=== PATIENT | female | born 1960 | race Caucasian/White ===

== ENCOUNTER 2016-06-28 17:43 | Emergency (ER) ==
[2016-06-28] MEDS ORDERED: DUONEB (A & A) INH ONE (18:52)
[2016-06-28 19:13] LABS: MANUAL DIFF NEEDED? NO
[2016-06-28 19:20] LABS: BASO% 0.3 % (0.0-0.8); EOS# 0.01 X1000 (0.0-0.7); EOS% 0.2 % (0.0-10.0); HEMATOCRIT 46.7 % (37.0-47.0); IMM GRAN# 0.02 X1000 (0.0-0.04); IMM GRAN% 0.3 % (0.0-0.5); LYMPH# 0.86 X1000 (1.2-3.4); LYMPH% 14.8 % (20.5-51.1); MCH 30.9 PG (27-31); MCHC 34.3 g/dL (33-37); MCV 90.3 FL (81-99); MONO# 0.09 X1000 (0.11-0.59); MONO% 1.5 % (1.7-9.3); MPV 10.3 FL (7.4-10.4); NEUT% 82.9 % (42.2-75.2); PLT 247 X1000 (130-400); RBC 5.17 XMIL (4.2-5.4)
[2016-06-28 19:26] LABS: INR 0.98; PROTIME 10.4 Seconds (9.2-11.7); PTT 26.4 Seconds (22.0-36.0)
--- NOTE | 2016-06-28 19:26 | ED EKG INTERP ---
EKG Interpretation - EKG Time of EKG reading by physician:: 19:25 EKG Read and Signed by:: All Morillo EKG Interpretation (*Must complete 3 of following elements*): Abnormal ( Possible L atrial enlargement; Prolonged QT) Rate: 89 Rhythm: Normal sinus rhythm Attestation - Scribe Verification/Attestation Scribe:: Melo Desouza Acting as Scribe for:: All Morillo Scribtrung documention review:: This chart was documented by a scribe and accurately reflects the service the provider performed and the decisions made by the provider.
[2016-06-28 19:31] LABS: AGAP 14; ALKALINE PHOSPHATASE 88 U/L (32-104); BUN 12 mg/dL (8-22); CHLORIDE 98 mmol/L (98-107); CK PROFILE 96 U/L (24-173); COSMO 278; GOT 21 U/L (10-30); GPT 34 U/L (10-36); POTASSIUM 4.1 mmol/L (3.5-5.1); SODIUM 136 mmol/L (136-145); TCO2 24 mmol/L (25-35); TOTAL BILIRUBIN 0.39 mg/dL (0.20-1.00); TOTAL PROTEIN 7.4 g/dL (6.3-8.3)
[2016-06-28] MEDS ORDERED: DECADRON PO ONE (20:15)
[2016-06-28] MEDS ORDERED: FIORICET PO ONE (20:15)
[2016-06-28] MEDS ORDERED: ZOFRAN ODT PO ONE (20:15)
--- NOTE | 2016-06-28 20:25 | PROVIDER DOCUMENTATION ---
HPI-Respiratory General - General Source: patient <Teri Rivasstephanie New - Last Filed: 06/28/16 20:56> <Joe Barron - Last Filed: 06/28/16 21:51> - General Chief Complaint: Cough Stated Complaint: POST OP COMPLAINT Time Seen by Provider: 06/28/16 18:38 Allergies/Adverse Reactions: Patient Allergies Allergy/AdvReac Type Severity Reaction Status Date / Time No Known Allergies Allergy Verified 06/28/16 19:00 Home Medications: Home Medication List Medication Instructions Recorded Confirmed Last Taken Type Gabapentin [Neurontin] 600 mg PO 4X05/30/12 06/28/16 06/28/16 History Levothyroxine [Synthroid] 175 microgm PO DAILY 05/30/12 06/28/16 06/28/16 History Amlodipine Besylate [Norvasc] 10 mg PO DAILY 01/27/16 06/28/16 06/28/16 History Hydrocodone/Acetaminophen [Caret 1 each PO Q4-6H PRN PRN #20 tablet 01/27/1606/28/16 Rx 10-325 Tablet] Vortioxetine Hydrobromide 20 mg PO DAILY 01/27/16 06/28/16 06/28/16 History [Brintellix] Albuterol 2.5MG/Ipratrop 0.5MG 3 ml INH Q4-6H PRN PRN #1 neb 04/18/16 06/28/16 06/28/16 Rx [Duoneb] Amoxicillin/Pot Clavulanate 875 mg PO Q12HR #14 tablet 06/28/16 Unknown Rx [Augmentin] Benzonatate [Tessalon Perle] 100 mg PO TID PRN #14 capsule 06/28/16 Unknown Rx Clonazepam 1 mg PO BID 06/28/16 06/28/16 06/28/16 History Losartan Potassium [Cozaar] 100 mg PO DAILY 06/28/16 06/28/16 06/28/16 History Methylprednisolone [Medrol Dosepak] 4 mg PO DIRECTED #1 package 06/28/16 Unknown Rx Ondansetron [Zofran] 4 mg PO Q6H PRN PRN #20 tablet 06/28/16 Unknown Rx - History of Present Illness-Resp Nature of Presenting Problem: 56 y/o WF c/o cough, congestion, SOB, fever x 4 days. Pt states throat biopsy x [address] Almaraz; states took biopsy of spot on her vocal chords, but denies any sore throat. States that she has had increasing SOB and breathing tx will suffice for short periods of time. Reports DILLARD. No other sxs. States cough is not productive. Fever of 101F at home. Reports PAINTER that is global in nature, worse with cough- present for 5 days. (Janny Rivas) Review of Systems - Adult - REVIEW OF SYSTEMS - ADULT Constitutional: reports: fever Eyes: reports: no symptoms reported. denies: blurred vision, double vision Ears, Nose, Mouth & Throat: reports: no symptoms reported. denies: ear pain, nose pain, throat pain Cardiovascular: reports: no symptoms reported. denies: chest pain, palpitations Respiratory: reports: see HPI, cough, dyspnea on exertion, shortness of breath Gastrointestinal: reports: no symptoms reported. denies: abdominal pain, nausea , vomiting Genitourinary: reports: no symptoms reported. denies: dysuria, frequency Musculoskeletal: reports: no symptoms reported. denies: joint pain, joint swelling Integumentary: reports: no symptoms reported. denies: nail changes, rash Neurological: reports: no symptoms reported. denies: numbness, paresthesia Psychiatric: reports: no symptoms reported Endocrine: reports: no symptoms reported. denies: cold intolerance, heat intolerance Hematologic/Lymphatic: reports: no symptoms reported. denies: easy bruising, prolonged bleeding Allergic/Immunologic: reports: no symptoms reported All Other Systems: Reviewed and Negative <Janny Rivas - Last Filed: 06/28/16 20:56> Past History - Adult - PAST MEDICAL HISTORY-ADULT Review of Records: reports: Nursing Assessment Review, Medications Reviewed Major Childhood Illnesses: reports: denies history Cardiovascular: reports: HTN, hyperlipidemia Respiratory: reports: denies history Gastrointestinal: reports: denies history Obstetrical/Gynecological: reports: denies history Genitourinary: reports: denies history Musculoskeletal: reports: denies history Neurological: reports: denies history Endocrine/Immune: reports: denies history Other Conditions: reports: denies history - PRIOR SURGERIES/PROCEDURES Surgical/Procedure History: reports: cholecystectomy - IMMUNIZATION STATUS Childhood Immunizations: See Nurse Assessment Flu Vaccine: See Nurse Assessment - FAMILY HISTORY Family History: reviewed, not pertinent - SOCIAL HISTORY Smoking: cigarettes, less than 1 pack/day Provider spent 3-5 mins advising pt. on dangers of tobacco.: Discussed manners to quit use, and f/u contacts for add'l counseling. <Janny Rivas - Last Filed: 06/28/16 20:56> Physical Exam-General - PHYSICAL EXAM-ADULT Initial Vital Signs Reviewed: Yes - CONSTITUTIONAL General Appearance: alert, moderate distress, obese - EYES Eyes: PERRL/EOMI, pink conjunctivae. negative: EOM palsy - HEAD, EARS, NOSE, MOUTH & THROAT HENMT: normocephalic/atraumatic, moist mucous membranes, pharyngeal erythema. negative: hearing deficit - NECK Neck: supple, normal inspection - RESPIRATORY Respiratory: no respiratory distress, wheezing - CARDIOVASCULAR Cardiovascular: regular rate, rhythm. negative: bradycardia, tachycardia - LYMPHATIC Lymphatic: no adenopathy - MUSCULOSKELETAL Back Exam: normal inspection Extremity: normal gait, pedal edema (not pitting, bilat). negative: abnormal NV exam - SKIN Integumentary: normal color, normal turgor, warm/dry - NEUROLOGIC Neurologic: [employer] II-XII nml as tested. negative: aphasia, EOM palsy, facial droop - PSYCHIATRIC Psych/Mental Status: normal mood/affect, normal thought content, normal thought process, oriented x 3 <Janny Rivas - Last Filed: 06/28/16 20:56> Progress - XRAY 1 XRAY Study: Chest XRAY Interpretation: increased lung markings - CHANGE OF SHIFT REPORT (ED Provider) Report Given and Care Transferred to:: Rodrigo Barron Time of Transfer: 20:56 Items Pending: CT/MRI Results Tentative Impression of Patient: bronchitis vs. PE <Janny Rivas - Last Filed: 06/28/16 20:56> - CT/MRI 1 CT Study: Angiogram Impression: Normal (RML Atelectasis. No PE Read by Radiologist.) <Joe Barron - Last Filed: 06/28/16 21:51> - PLAN OF CARE/RESULTS Progress/Plan/Lab Results: Laboratory Tests 06/28/16 06/28/16 06/28/16 18:58 18:58 18:58 WBC 5.83 RBC 5.17 Hgb 16.0 Hct 46.7 MCV 90.3 MCH 30.9 MCHC 34.3 RDW Std Deviation 13.2 Plt Count 247 MPV 10.3 Immature Gran % (Auto) 0.3 Neut % (Auto) 82.9 H Lymph % (Auto) 14.8 L [place] % (Auto) 1.5 L Eos % (Auto) 0.2 Baso % (Auto) 0.3 Immature Gran # (Auto) 0.02 Neut # (Auto) 4.83 Lymph # (Auto) 0.86 L [place] # (Auto) 0.09 L Eos # (Auto) 0.01 Baso # (Auto) 0.02 PT INR PTT (Actin FS) D-Dimer 0.67 H Sodium 136 Potassium 4.1 Chloride 98 Carbon Dioxide 24 L Anion Gap 14 BUN 12 Creatinine 0.7 Estimated GFR/1.73 m2 > 60 BUN/Creatinine Ratio 17 Glucose 214 H Calculated Osmolality 278 Calcium 9.0 Magnesium 2.0 Total Bilirubin 0.39 AST 21 ALT 34 Alkaline Phosphatase 88 Creatine Kinase 96 Troponin T Ltz-X-Tgbngkksmvu Pept Total Protein 7.4 Albumin 4.0 Globulin 3.4 Albumin/Globulin Ratio 1.2 06/28/16 06/28/16 06/28/16 18:58 18:58 18:58 WBC RBC Hgb Hct MCV MCH MCHC RDW Std Deviation Plt Count MPV Immature Gran % (Auto) Neut % (Auto) Lymph % (Auto) [place] % (Auto) Eos % (Auto) Baso % (Auto) Immature Gran # (Auto) Neut # (Auto) Lymph # (Auto) [place] # (Auto) Eos # (Auto) Baso # (Auto) PT 10.4 INR 0.98 PTT (Actin FS) 26.4 D-Dimer Sodium Potassium Chloride Carbon Dioxide Anion Gap BUN Creatinine Estimated GFR/1.73 m2 BUN/Creatinine Ratio Glucose Calculated Osmolality Calcium Magnesium Total Bilirubin AST ALT Alkaline Phosphatase Creatine Kinase Troponin T < 0.010 Zea-C-Zgkfjzctsed Pept 50 Total Protein Albumin Globulin Albumin/Globulin Ratio Orders Category Date Time Status ANGIOGRAM/PULMONARY ARTERIES [CT] Stat Exams 06/28/16 20:00 Taken CHEST-2 VIEWS [RAD] Stat Exams 06/28/16 18:03 Taken CBC WITH ELECTRONIC DIFF [HEME] Stat Lab 06/28/16 18:58 Completed CK PROFILE [SP CHEM] Stat Lab 06/28/16 18:58 Completed COMPREHENSIVE METABOLIC PANEL [CHEM] Stat Lab 06/28/16 18:58 Completed D-DIMER [CHEM] Stat Lab 06/28/16 18:58 Completed Flu Swab [INFLUENZA SCREEN A/B] Stat Lab 06/28/16 17:58 Completed MAGNESIUM [CHEM] Stat Lab 06/28/16 18:58 Completed PRO B-NATRIURETIC PEPTIDE Stat Lab 06/28/16 18:58 Completed PROTIME WITH INR [COAG] Stat Lab 06/28/16 18:58 Completed PTT [COAG] Stat Lab 06/28/16 18:58 Completed TROPONIN T Stat Lab 06/28/16 18:58 Completed Albuterol 2.5MG/Ipratrop 0.5MG [Duoneb (A & A)] Med 06/28/16 18:52 Discontinued 6 ml INH NOW ONE Butalbital/APAP/Caffeine [Fioricet] Med 06/28/16 20:15 Discontinued 1 each PO NOW ONE Dexamethasone [Decadron] Med 06/28/16 20:15 Discontinued 8 mg PO NOW ONE Ondansetron Odt [Zofran Odt] Med 06/28/16 20:15 Discontinued 4 mg PO NOW ONE Promethazine [Phenergan] Med 06/28/16 21:21 Discontinued 25 mg IV NOW ONE Sodium Chloride 0.9% Med 06/28/16 21:21 Discontinued 10 ml INJ NOW ONE Aerosol Treatments Routine Oth 06/28/16 18:52 Completed Aerosol Treatments Stat Oth 06/28/16 18:52 Completed EKG [EKG] Stat Ther 06/28/16 18:49 Ordered Vital Signs Temp Pulse Resp BP Pulse Ox 06/28/16 19:59 80 16 06/28/16 18:01 98.3 F 89 20 154/86 97 No Known Allergies Allergy (Verified 06/28/16 19:00) Gabapentin [Neurontin] 600 mg PO 4XDAY 05/30/12 Levothyroxine [Synthroid] 175 microgm PO DAILY 05/30/12 Amlodipine Besylate [Norvasc] 10 mg PO DAILY 01/27/16 Hydrocodone/Acetaminophen [Caret 10-325 Tablet] 1 each PO Q4-6H PRN PRN #20 tablet 01/27/16 Vortioxetine Hydrobromide [Brintellix] 20 mg PO DAILY 01/27/16 Albuterol 2.5MG/Ipratrop 0.5MG [Duoneb] 3 ml INH Q4-6H PRN PRN #1 neb 04/18/16 Clonazepam 1 mg PO BID 06/28/16 Losartan Potassium [Cozaar] 100 mg PO DAILY 06/28/16 Laboratory 06/28/16 06/28/16 06/28/16 18:58 18:58 18:58 WBC RBC Hgb Hct MCV MCH MCHC RDW Std Deviation Plt Count MPV Immature Gran % (Auto) Neut % (Auto) Lymph % (Auto) [place] % (Auto) Eos % (Auto) Baso % (Auto) Immature Gran # (Auto) Neut # (Auto) Lymph # (Auto) [place] # (Auto) Eos # (Auto) Baso # (Auto) PT 10.4 INR 0.98 PTT (Actin FS) 26.4 D-Dimer Sodium Potassium Chloride Carbon Dioxide Anion Gap BUN Creatinine Estimated GFR/1.73 m2 BUN/Creatinine Ratio Glucose Calculated Osmolality Calcium Magnesium Total Bilirubin AST ALT Alkaline Phosphatase Creatine Kinase Troponin T < 0.010 Ttv-X-Xhcypwpnlrr Pept 50 Total Protein Albumin Globulin Albumin/Globulin Ratio 06/28/16 06/28/16 06/28/16 18:58 18:58 18:58 WBC 5.83 RBC 5.17 Hgb 16.0 Hct 46.7 MCV 90.3 MCH 30.9 MCHC 34.3 RDW Std Deviation 13.2 Plt Count 247 MPV 10.3 Immature Gran % (Auto) 0.3 Neut % (Auto) 82.9 H Lymph % (Auto) 14.8 L [place] % (Auto) 1.5 L Eos % (Auto) 0.2 Baso % (Auto) 0.3 Immature Gran # (Auto) 0.02 Neut # (Auto) 4.83 Lymph # (Auto) 0.86 L [place] # (Auto) 0.09 L Eos # (Auto) 0.01 Baso # (Auto) 0.02 PT INR PTT (Actin FS) D-Dimer 0.67 H Sodium 136 Potassium 4.1 Chloride 98 Carbon Dioxide 24 L Anion Gap 14 BUN 12 Creatinine 0.7 Estimated GFR/1.73 m2 > 60 BUN/Creatinine Ratio 17 Glucose 214 H Calculated Osmolality 278 Calcium 9.0 Magnesium 2.0 Total Bilirubin 0.39 AST 21 ALT 34 Alkaline Phosphatase 88 Creatine Kinase 96 Troponin T Mvd-S-Xdtkljpcvvs Pept Total Protein 7.4 Albumin 4.0 Globulin 3.4 Albumin/Globulin Ratio 1.2 (AndersonJoe Virgen) Departure <Janny Rivas - Last Filed: 06/28/16 20:56> - Departure Time of Disposition Order: 21:48 Certified Medical Emergency: Emergent <AndersonJoe Virgen - Last Filed: 06/28/16 21:51> - Departure DIAGNOSIS: URI (upper respiratory infection) Qualifiers: URI type: unspecified URI Qualified Code(s): J06.9 - Acute upper respiratory infection, unspecified Disposition: HOME 01 Condition: Stable Additional Instructions: ED Follow Up Instructions: You have been treated by a care provider in the Emergency Department. These instructions are being provided to you so you can have an understanding of how to care for yourself upon discharge. Upon discharge from the Emergency Department, you are responsible for making arrangements for follow-up care by a physician of your choice. Take all prescribed medications as directed. Return to the Emergency Department immediately for any new or worsening symptoms. You may call the Physician Referral phone number at [phone] to obtain a list of Physicians who are taking new patients. Prescriptions: Amoxicillin/Pot Clavulanate [Augmentin] 875 mg PO Q12HR #14 tablet Methylprednisolone [Medrol Dosepak] 4 mg PO DIRECTED #1 package Benzonatate [Tessalon Perle] 100 mg PO TID PRN #14 capsule PRN Reason: Cough Ondansetron [Zofran] 4 mg PO Q6H PRN PRN #20 tablet PRN Reason: Nausea Referrals: Laura Dallas CRNP [Primary Care Provider] - Attestation - Physician/ ELLEN Attestation Patient care was provided by Advanced Practice Provider:: Yes Advanced Practice Provider:: Janny Rivas Advanced Practice Provider documentation review:: The Mid-level provider documentation, treatment plan and medical decision making was reviewed by the physician who agrees with all treatment and medical decision making by the P. <Janny Rivas - Last Filed: 06/28/16 20:56> - Physician/ ELLEN Attestation #2 Shift Change Time: 21:00 Patient care was provided by Mid-level provider (PAEDIATRIC PHYSIOTHERAPIST/PA):: Yes Mid-level Provider Name: Joe Barron <Joe Barron - Last Filed: 06/28/16 21:51> Physician Attestation
[2016-06-28] MEDS ORDERED: PHENERGAN IV ONE (21:21)
[2016-06-28] MEDS ORDERED: SODIUM CHLORIDE 0.9% INJ ONE (21:21)
[2016-06-28] MEDS ORDERED: DILAUDID IV ONE (21:58)
[2016-06-28 21:59] VITALS: BP 150/82
--- NOTE | 2016-06-29 09:29 | Diag Imaging Result Document ---
PROCEDURE NAME: CHEST-2 VIEWS - 06/28/2016 TWO VIEWS OF THE CHEST: FINDINGS: There is no evidence of acute cardiac or pulmonary disease. Compared to 04/18/2016, there has been no significant change in the appearance of the chest. IMPRESSION: No evidence of acute disease.
--- NOTE | 2016-06-29 10:29 | Diag Imaging Result Document ---
PROCEDURE NAME: ANGIOGRAM/PULMONARY ARTERIES - 06/28/2016 CT OF THE CHEST WITH INTRAVENOUS CONTRAST: FINDINGS: Opacification of some of the distal branches is suboptimal and is also impaired by respiratory motion. The main vessels are without evidence of filling defects. The aorta is not optimally opacified distally; however, there is no evidence of aneurysm or dissection. There is a hiatal hernia. There is some atelectasis present in the medial segment of the right middle lobe. Otherwise, there is no evidence of acute pulmonary parenchymal disease. No abnormal fluid collections are present. There is no evidence of significant adenopathy. IMPRESSION: Right middle lobe atelectasis. No evidence of pulmonary emboli. Hiatal hernia.
--- NOTE | 2016-07-01 08:14 | EKG Report ---
Test Performed on : 06/28/2016 7:23:33 PM Test Reason : Chest Pain Blood Pressure : / mmHG Vent. Rate : 089 BPM Atrial Rate : 089 BPM P-R Int : 142 ms QRS Dur : 102 ms QT Int : 408 ms P-R-T Axes : 067 -02 035 degrees QTc Int : 496 ms Normal sinus rhythm. Possible Left atrial enlargement Prolonged QT Abnormal ECG When compared with ECG of 20-JUL-2013 20:52, No significant change was found Unconfirmed Result
== END 2016-06-28 22:23 | disposition home or self-care (01) ==
LOC: ED 17:43
DX: J06.9 Acute upper respiratory infection, unspecified (principal); J98.11 Atelectasis; K44.9 Diaphragmatic hernia without obstruction or gangrene; R94.31 Abnormal electrocardiogram [ECG] [EKG]; R05 Cough; R09.81 Nasal congestion; R06.02 Shortness of breath; R50.9 Fever, unspecified; R51 Headache; R06.00 Dyspnea, unspecified; R06.2 Wheezing; R60.0 Localized edema; I10 Essential (primary) hypertension; E78.5 Hyperlipidemia, unspecified; E66.9 Obesity, unspecified; F17.210 Nicotine dependence, cigarettes, uncomplicated; Z79.899 Other long term (current) drug therapy; Z71.6 Tobacco abuse counseling
CPT/HCPCS: 71020; 71275; 80053; 82550; 83735; 83880; 84484; 85025; 85379; 85610; 85730; 87804; 93005; 94640; J1170; J2550; J8540; Q9967